=== PATIENT | male | born 1950 | race Caucasian/White ===

== ENCOUNTER → 2017-05-22 | Outpatient (CLI) | payer OTHER ==
--- NOTE | 2017-05-22 19:00 | HKNOTE ---
DATE OF SERVICE: MAIN COMPLAINT: Left hip pain. HISTORY OF PRESENT ILLNESS: This is a 66-year-old male, who had a previous hip fracture in 2008. Patient had a cephalomedullary nailing performed at [facility] by Dr. Ricks. He is complaining of improving pain in his left upper back. There is no radiation of the pain. He uses a walker occasionally for ambulation. He takes [place] for pain control. He denies any recent history of any recent history of trauma. He denies any groin or knee pain. EXAMINATION: GAIT: Antalgic gait, use of a walker. LEFT HIP: There is 0-90 degrees range of motion, 40 degrees of external rotation, 20 degrees of internal rotation. Negative Elsie's negative anterior, negative straight leg raise. Negative Stinchfield. LUMBAR SPINE EXAM: Nontender over the lumbar spine. There is 0- 60 degrees of flexion. Fifty degrees of extension. Negative straight leg raise. Motor strength is 5/5 quadriceps, tibialis anterior, gastroc-soleus, hamstrings. IMAGING: An AP pelvis x-ray, there is a previous healed fracture of the anterior trochanter of the left femur with intact hardware. A left hip x-ray, 2 views, previous hardware is intact. No new fractures are seen. There is minimal degenerative changes of the left hip. IMPRESSION: The patient is a 66-year-old male with left hip pain. PLAN: We will request authorization for physical therapy. He can continue to take [place] from his primary care physician. He will follow up as needed in the future. Dictated By: Kena Enamorado MD /lela/elizabeth /Document#: [id number]
== END | disposition home or self-care (01) ==
LOC: HKI 14:49
PROVIDERS: ATTEND Orthopaedic Surgery Adult Reconstructive Orthopaedic Surgery
DX: M25.552 Pain in left hip (principal)
CPT/HCPCS: G0463

== ENCOUNTER 2019-03-05 05:19 | Day surgery (SDC) | payer OTHER ==
[~2019-03-05] VITALS: Ht 157.5 cm; Wt 146.5 kg
[2019-03-05] VITALS (13 sets, daily range): BP systolic 91–141; BP diastolic 59–85; PULSE 77–94; RESP 13–18; Ht 157.5 cm; Wt 146.5 kg
[2019-03-05] MEDS ORDERED: TROPICAMIDE 1% 15 ML OPH OPER SCH (06:00)
[2019-03-05] MEDS ORDERED: NEOMYC/POLYMYX/DEXAM 3.5GM OPH OINT OPER ONE (06:00)
[2019-03-05] MEDS ORDERED: ACETAZOLAMIDE 250 MG TAB PO PRN (06:00)
[2019-03-05] MEDS ORDERED: ACETAMINOPHEN 500 MG TAB PO ONE (06:00)
[2019-03-05] MEDS ORDERED: PHENYLephrine 2.5% 15 ML OPH OPER SCH (06:00)
[2019-03-05] MEDS ORDERED: APRACLONIDINE 1% 0.1 ML OPH OPER PRN (06:00)
[2019-03-05] MEDS ORDERED: BALANCED SALT SOLN OPH IRRIG 500 ML, EPINEPHrine 0.1 MG, GENTAMICIN 4 MG, VANCOMYCIN 10 MG IRR SCH ×4 (06:00)
[2019-03-05] MEDS ORDERED: TETRACAINE 0.5% 4 ML OPH OPER SCH (06:00)
[2019-03-05] MEDS ORDERED: TETRACAINE 0.5% 4 ML OPH ONE (06:53)
[2019-03-05] MEDS ORDERED: TOBRAMYCIN/DEXAMETH 3.5 GM OPH OINT ONE (06:53)
[2019-03-05] MEDS ORDERED: LIDOCAINE 4% (MPF) 5 ML INJ ONE ×2 (06:53→07:11)
[2019-03-05] MEDS ORDERED: ALBU18HF INHALATION (07:07)
[2019-03-05] MEDS ORDERED: ATOR40TA68 ORAL (07:07)
[2019-03-05] MEDS ORDERED: AMLO-147 ORAL (07:07)
[2019-03-05] MEDS ORDERED: HYDR25TA6 ORAL (07:07)
[2019-03-05] MEDS ORDERED: GABA-526 ORAL (07:07)
[2019-03-05] MEDS ORDERED: UMEC1DIS INH (07:07)
--- NOTE | 2019-03-05 07:25 | PREAC ---
Date/Time of Note Date/Time of Note DATE: 03/05/19 TIME: 07:22 Anesthesia Eval and Record Evaluation Time Pre-Procedure Interview DATE: 03/05/19 TIME: 07:22 Age 68 Sex male NPO: 8 hrs Preoperative diagnosis Right Eye Cataract Planned procedure Right Eye Cataract Extraction with IOL implant Past Medical History Past Medical History: Includes Cardio: HTN, Dyslipidemia Pulm: COPD Surgery & Anesthesia Issues No known issue Meds Anticoagulation: No Beta [place] within 24 hr: No Reason Beta [place] not given: Pt. not on B-[place] Reported Medications Amlodipine Besylate* (Amlodipine Besylate*) 10 Mg Tablet, 1 TAB ORAL DAILY 03/05/19 Hydrochlorothiazide* (Hydrochlorothiazide*) 25 Mg Tab, 1 TAB ORAL DAILY 03/05/19 Atorvastatin* (Atorvastatin*) 40 Mg Tablet, 1 TAB ORAL DAILY 03/05/19 Gabapentin* (Gabapentin*) 600 Mg Tablet, 1 TAB ORAL TID 03/05/19 Albuterol Sulfate* (Ventolin HFA*) 18 Gm Hfa.aer.ad, 2 PUFF INHALATION Q6H PRN for SHORTNESS OF BREATH, #1 INHALER 03/05/19 Umeclidinium Brm-Vilanterol Tr (Anoro Ellipta) 62.5-25 Mcg Disk.w.dev, 1 PUFF INH BID 03/05/19 Current Medications Tropicamide (Mydriacyl 1%) 1 drop Q5 MIN X3 OPER Last administered on 03/05/19at 06:49; Admin Dose 1 DROP; Start 03/05/19 at 06:00; Stop 03/05/19 at 17:00 Phenylephrine HCl (Ak-Dilate 2.5%) 1 drop Q5 MIN X 3 OPER Last administered on 03/05/19at 06:51; Admin Dose 1 DROP; Start 03/05/19 at 06:00; Stop 03/05/19 at 17:00 Tetracaine HCl (Tetracaine 0.5% Steri-Unit Sheri) 2 drop ONCE (PRE-OP) OPER Last administered on 03/05/19at 06:50; Admin Dose 2 DROP; Start 03/05/19 at 06:00; Stop 03/05/19 at 17:00 Sod Cl/Ca Cl/Mg Cl/Pot Cl/ Epinephrine/ Gentamicin Sulfate/ Vancomycin HCl INTRA-OP IRR ; Start 03/05/19 at 06:00; Stop 03/05/19 at 17:00 Acetazolamide (Diamox) 250 mg POST-OP PRN PO X1 IF TRABECULECTOMY PERFORMED; Start 03/05/19 at 06:00 Apraclonidine HCl (Iopidine 1% Oph) 1 drop POST-OP PRN OPER IF UNABLE TO TAKE DIAMOX; Start 03/05/19 at 06:00; Stop 03/05/19 at 17:00 Meds reviewed: Yes Allergies Coded Allergies: No Known Allergy (Unverified , 03/05/19) Allergies Reviewed: Yes Labs/Studies Labs Reviewed: Reviewed by anesthesiologist test: N/A Studies: ECG (NSR), CXR (No active Disease) Pre-procedure Exam Last vitals Vital Signs Date Temp Pulse Resp B/P (MAP) Pulse Ox O2 O2 Flow FiO2 Time Delivery Rate 03/05/19 99.0 06:48 Airway: Adequate mouth opening, Adequate thyromental dist Mallampati: Mallampati II Teeth: Normal Lung: Normal Heart: Normal ASA Physical Status ASA physical status: 3 Emergency: None Planned Anesthetic General/MAC: MAC Planned Pain Management Parenteral pain med Pre-operative Attestations Prior to commencing anesthesia and surgery, the patient was re-evaluated, there was verification of: *The patient's identity *The results of appropriate recent lab work and preoperative vital signs *The above evaluation not changing prior to induction *Anesthetic plan, risk benefits, alternative and complications discussed with patient/family; questions answered; patient/family understands, accepts and wishes to proceed. DEYA LEMONS MD Mar 05, 2019 07:25
[2019-03-05] MEDS ORDERED: ONDANSETRON 4 MG INJ IV PRN (07:30)
[2019-03-05] MEDS ORDERED: HYDROmorphONE 1 MG/5 ML IV SYRINGE IV PRN (07:30)
[2019-03-05] MEDS ORDERED: EPHEDrine 25 MG/5 ML SYG IV PRN (07:30)
[2019-03-05] MEDS ORDERED: LABETALOL HCL 20MG INJ IV PRN (07:30)
[2019-03-05] MEDS ORDERED: FENTAnyl 50 MCG/ML VIAL IV PRN (07:30)
[2019-03-05] MEDS ORDERED: hydrALAzine 20 MG INJ IV PRN (07:30)
[2019-03-05] MEDS ORDERED: OXYCODONE/ACETAMINOPHEN (5/325) TAB PO PRN (07:30)
[2019-03-05] MEDS ORDERED: TRYPAN BLUE 0.5 ML SYG IO ONE (07:32)
--- NOTE | 2019-03-05 07:44 | HPN ---
Date/Time of Note Date/Time of Note DATE: 03/05/19 TIME: 07:43 Interval H&P Admission Note Pt. seen H&P reviewed: No system changes DELBERT HAYNES MD Mar 05, 2019 07:44
[2019-03-05] MEDS ORDERED: FENTAnyl 50 MCG/ML VIAL ONE (07:50)
[2019-03-05] MEDS ORDERED: MIDAZOLAM 1 MG/ML 2 ML INJ ONE ×2 (07:51→08:18)
[2019-03-05] MEDS ORDERED: LACTATED RINGER'S 1,000 ML IV SCH (08:00)
--- NOTE | 2019-03-05 08:51 | PAC ---
Date/Time of Note Date/Time of Note DATE: 03/05/19 TIME: 08:50 Post-Anesthesia Notes Post-Anesthesia Note Last documented vital signs Vital Signs Date Temp Pulse Resp B/P (MAP) Pulse Ox O2 O2 Flow FiO2 Time Delivery Rate 03/05/19 99.0 08:48 Activity: WNL Respiratory function: WNL Cardiovascular function: WNL Mental status: Baseline Pain reasonably controlled: Yes Hydration appropriate: Yes Nausea/Vomiting absent: Yes DEYA LEMONS MD Mar 05, 2019 08:51
--- NOTE | 2019-03-05 09:55 | SIPON ---
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
== END 2019-03-05 10:10 | disposition home or self-care (01) ==
LOC: SDS 05:19
PROVIDERS: ATTEND Ophthalmology
DX: H26.8 Other specified cataract (principal); I10 Essential (primary) hypertension; E78.5 Hyperlipidemia, unspecified
CPT/HCPCS: 66984; J0171; J1580; J2250; J3010; J3370; V2632